=== PATIENT | male | born 1970 | race African-American/Black ===

== ENCOUNTER 2017-12-23 18:28 | Observation (INO) ==
[2017-12-23 19:30] LABS: Baso # (Auto) 0.2 th/mm3 (0.0-0.2); Baso % (Auto) 3.8 % (0.0-2.0); Eos # (Auto) 0.1 th/mm3 (0.0-0.4); Eos % (Auto) 1.2 % (0.0-4.0); Hematocrit 41.8 % (39.0-51.0); Lymph # (Auto) 1.4 th/mm3 (1.0-4.8); Lymph % (Auto) 27.9 % (9.0-44.0); Mean Corpuscular HGB Conc 35.9 % (32.0-36.0); Mean Corpuscular Hemoglobin 30.2 pg (27.0-34.0); Mean Corpuscular Volume 84.3 fL (80.0-100.0); Mean Platelet Volume 8.2 fL (7.0-11.0); Mono # (Auto) 0.3 th/mm3 (0.0-0.9); Mono % (Auto) 6.1 % (0.0-8.0); Neut # (Auto) 2.8 th/mm3 (1.8-7.7); Platelet Count 273 th/mm3 (150-450); Red Blood Count 4.96 mil/mm3 (4.50-5.90); Red Cell Distribution Width 13.1 % (11.6-17.2); White Blood Count 4.9 th/mm3 (4.0-11.0)
[2017-12-23 19:32] LABS: Chloride 99 meq/L (98-107); Potassium 4.5 meq/L (3.5-5.1); Sodium 131 meq/L (136-145)
[2017-12-23] MEDS: Sod Chloride 0.9% Inj 1,000 ML IV.SIG SCH ×3 (19:34→21:11)
--- NOTE | 2017-12-23 19:34 | XR ---
EXAM DATE: 12/23/2017 7:23 PM EDT AGE/SEX: 47 years / Male INDICATIONS: Chest pain. CLINICAL DATA: This is the patient's initial encounter. Patient reports that signs and symptoms have been present for 3 days and indicates a pain score of 5/10. MEDICAL/SURGICAL HISTORY: None. None. COMPARISON: No prior exams available for comparison. FINDINGS: The lungs are clear without infiltrate, nodule, or mass. There is no appreciable pleural effusion for technique. Heart and mediastinum are unremarkable. CONCLUSION: No acute cardiopulmonary disease. Electronically signed by: Paul Dent MD 12/23/2017 7:33 PM EDT
[2017-12-23 19:36] LABS: Albumin 3.8 g/dL (3.4-5.0); Anion Gap 8 meq/L (5-15); Blood Urea Nitrogen 13 mg/dL (7-18); Calcium 8.6 mg/dL (8.5-10.1); Carbon Dioxide 23.6 meq/L (21.0-32.0)
[2017-12-23 19:37] LABS: Activated Partial Thrombo Time 24.5 sec (24.3-30.1); INR 0.9 Ratio; Prothrombin Time 9.4 sec (9.8-11.6)
[2017-12-23 19:39] LABS: Alanine Aminotransferase 47 U/L (12-78); Aspartate Aminotransferase 28 U/L (15-37); Glomerular Filtration Rate 79 mL/min (>89)
[2017-12-23 19:41] LABS: Total Protein 7.6 g/dL (6.4-8.2)
[2017-12-23 19:43] LABS: Alkaline Phosphatase 153 U/L (45-117); Creatine Kinase 361 U/L (39-308)
[2017-12-23 19:46] LABS: Glucose,Random 577 mg/dL (74-106)
--- NOTE | 2017-12-23 19:57 | CT ---
EXAM DATE: 12/23/2017 7:49 PM EDT AGE/SEX: 47 years / Male INDICATIONS: Blurred vision. Chills for three days. CLINICAL DATA: This is the patient's initial encounter. Patient reports that signs and symptoms have been present for 3 days and indicates a pain score of 0/10. MEDICAL/SURGICAL HISTORY: . . RADIATION DOSE: 56.11 CTDI (mGy) COMPARISON: No prior exams available for comparison. TECHNIQUE: CT of the head without contrast. Using automated exposure control and adjustment of the mA and/or kV according to patient size, radiation dose was kept as low as reasonably achievable to ob tain optimal diagnostic quality images. DICOM format image data is available electronically for revi ew and comparison. FINDINGS: There is no evidence for intracranial hemorrhage, mass effect, mass lesions, edema, or extra-axial fl uid collections. The visualized bony structures appear intact. The ventricles are normal size for t he patient's age. There are no signs of acute infarction for technique. CONCLUSION: Unremarkable study. Electronically signed by: Paul Dent MD 12/23/2017 7:55 PM EDT
[2017-12-23 20:02] LABS: CKMB Percent 0.5 % (0.0-4.0); Creatine Kinase MB 1.9 ng/mL (0.5-3.6)
--- NOTE | 2017-12-23 20:28 | ED ---
HPI General Chief complaint: Eye Problems Stated complaint: blurred vision /chills x3days Time Seen by Provider: 12/23/17 18:57 Source: patient Mode of arrival: ambulatory Limitations: no limitations History of Present Illness HPI narrative: Patient is a 47-year-old male who comes in complaining of chest pain, blurred vision, elevated blood sugar. He says he has had chest pain for the past 2 days. He says his vision became blurry today. He says that he has had increased thirst and urination. He says his doctor told him he was borderline diabetic last time he saw him. He denies fever chills. He says the pain is in the center of his chest and he feels like it may be reflux. He denies nausea or vomiting. He denies any headache or head injury. Severity is mild to moderate. Related Data Home Medications Medication Instructions Recorded Confirmed dutasteride 0.5 mg PO DAILY 12/23/17 12/23/17 Allergies Allergy/AdvReac Type Severity Reaction Status Date / Time No Known Allergies Allergy Verified 12/23/17 20:15 Review of Systems ROS: all other systems reviewed are negative Constitutional Denies chills and Denies fever(s) Eyes Reports blurry vision ENT Denies dizziness Cardiovascular Reports chest pain and Denies edema Respiratory Denies cough and Denies dyspnea Gastrointestinal Denies abdominal pain, Denies nausea and Denies vomiting Musculoskeletal Denies myalgias and Denies arthralgias Integumentary/Breasts Denies rash and Denies wounds Neurologic Denies headache(s), Denies focal weakness, Denies numbness and Denies weakness [facility] Medical History Medical History Toxoplasmosis (Acute) Social History Social History Substance History: No History of Abuse Second Hand Smoke Exposure: No Smoking Status: Never smoker How Often Do You Have a Drink Containing Alcohol: Monthly or less Recent Travel in [facility] within the Last 8 Weeks: No Recent Out of Country Travel within the Last 8 Weeks: No Immunization History Tetanus Immunization: >5 Years Hx Influenza Vaccine This Season: No Exam Narrative Exam Narrative: GENERAL: Awake and alert, in no acute distress. SKIN: Focused skin assessment warm/dry. No wounds or signs of infection. HEAD: Atraumatic. Normocephalic. EYES: Pupils equal and round. No scleral icterus. ENT: Mucous membranes pink and moist. NECK: Trachea midline. No JVD. CARDIOVASCULAR: Regular rate and rhythm. No murmur appreciated. RESPIRATORY: No accessory muscle use. Clear to auscultation. Breath sounds equal bilaterally. GASTROINTESTINAL: Abdomen soft, non-tender, nondistended. Hepatic and splenic margins not palpable. MUSCULOSKELETAL: No obvious deformities. No clubbing. No cyanosis. No edema. NEUROLOGICAL: Awake and alert. No obvious cranial nerve deficits. Motor grossly within normal limits. Normal speech. Peripheral vision intact. PSYCHIATRIC: Appropriate mood and affect; insight and judgment normal. Course Initial Documented Vital Signs Temperature 98.5 F 12/23/17 18:46 Pulse Rate 84 12/23/17 18:46 Respiratory Rate 18 12/23/17 18:46 Blood Pressure 155/97 H 12/23/17 18:46 Pulse Oximetry 96 12/23/17 18:46 Last Documented Vital Signs Temperature 98.5 F 12/23/17 18:46 Pulse Rate 84 12/23/17 20:13 Respiratory Rate 18 12/23/17 18:46 Blood Pressure 171/82 H 12/23/17 20:13 Pulse Oximetry 98 12/23/17 20:13 Medical Decision Making MDM Narrative Medical decision making narrative: Patient is a 47-year-old male who comes in complaining of blurred vision, chest pain, urinary frequency and increased thirst. Exam shows no neurologic abnormalities. Patient does have decreased vision bilaterally. IV established, labs sent. Labs show a blood sugar of 577. Patient given IV fluids, insulin, aspirin. First troponin is negative. Patient will be admitted for management of chest pain as well as new onset diabetes. Medical Screen Exam Complete: Yes Emergency Medical Condition: Yes Differential Diagnosis Differential Diagnosis: New-onset diabetes versus DKA versus dehydration versus ACS Medical Records Medical records reviewed: Yes I reviewed the patient's medical records. Lab Data Lab results reviewed: Yes I reviewed the patient's lab results. Result diagrams: 12/23/17 19:15 12/23/17 19:15 Lab Results 12/23/17 12/23/17 12/23/17 Range/Units 19:15 19:15 19:15 CBC w Diff Auto diff final WBC 4.9 (4.0-11.0) th/mm3 RBC 4.96 (4.50-5.90) mil/mm3 Hgb 15.0 (13.0-17.0) gm/dL Hct 41.8 (39.0-51.0) % MCV 84.3 (80.0-100.0) fL MCH 30.2 (27.0-34.0) pg MCHC 35.9 (32.0-36.0) % RDW 13.1 (11.6-17.2) % Plt Count 273 (150-450) th/mm3 MPV 8.2 (7.0-11.0) fL Neut % (Auto) 61.0 (16.0-70.0) % Lymph % (Auto) 27.9 (9.0-44.0) % [place] % (Auto) 6.1 (0.0-8.0) % Eos % (Auto) 1.2 (0.0-4.0) % Baso % (Auto) 3.8 H (0.0-2.0) % Neut # (Auto) 2.8 (1.8-7.7) th/mm3 Lymph # (Auto) 1.4 (1.0-4.8) th/mm3 [place] # (Auto) 0.3 (0.0-0.9) th/mm3 Eos # (Auto) 0.1 (0.0-0.4) th/mm3 Baso # (Auto) 0.2 (0.0-0.2) th/mm3 WBC Differential . Differential Comment . PT 9.4 L (9.8-11.6) sec INR 0.9 Ratio APTT 24.5 (24.3-30.1) sec Sodium 131 L (136-145) meq/L Potassium 4.5 (3.5-5.1) meq/L Chloride 99 (98-107) meq/L Carbon Dioxide 23.6 (21.0-32.0) meq/L Anion Gap 8 (5-15) meq/L BUN 13 (7-18) mg/dL Creatinine 1.20 (0.60-1.30) mg/dL Estimated GFR 79 L (>89) mL/min POC Glucose (68-110) mg/dl Random Glucose 577 H* (74-106) mg/dL Calcium 8.6 (8.5-10.1) mg/dL Total Bilirubin 0.3 (0.2-1.0) mg/dL Direct Bilirubin 0.1 (0.0-0.2) mg/dL Indirect Bilirubin 0.2 (0.0-0.8) mg/dL AST 28 (15-37) U/L ALT 47 (12-78) U/L Alkaline Phosphatase 153 H (45-117) U/L Total Creatine Kinase 361 H (39-308) U/L CK-MB (CK-2) 1.9 (0.5-3.6) ng/mL CK-MB (CK-2) % 0.5 (0.0-4.0) % Troponin I Less than 0.02 L (0.02-0.05) ng/mL Total Protein 7.6 (6.4-8.2) g/dL Albumin 3.8 (3.4-5.0) g/dL 12/23/17 Range/Units 20:14 CBC w Diff WBC (4.0-11.0) th/mm3 RBC (4.50-5.90) mil/mm3 Hgb (13.0-17.0) gm/dL Hct (39.0-51.0) % MCV (80.0-100.0) fL MCH (27.0-34.0) pg MCHC (32.0-36.0) % RDW (11.6-17.2) % Plt Count (150-450) th/mm3 MPV (7.0-11.0) fL Neut % (Auto) (16.0-70.0) % Lymph % (Auto) (9.0-44.0) % [place] % (Auto) (0.0-8.0) % Eos % (Auto) (0.0-4.0) % Baso % (Auto) (0.0-2.0) % Neut # (Auto) (1.8-7.7) th/mm3 Lymph # (Auto) (1.0-4.8) th/mm3 [place] # (Auto) (0.0-0.9) th/mm3 Eos # (Auto) (0.0-0.4) th/mm3 Baso # (Auto) (0.0-0.2) th/mm3 WBC Differential Differential Comment PT (9.8-11.6) sec INR Ratio APTT (24.3-30.1) sec Sodium (136-145) meq/L Potassium (3.5-5.1) meq/L Chloride (98-107) meq/L Carbon Dioxide (21.0-32.0) meq/L Anion Gap (5-15) meq/L BUN (7-18) mg/dL Creatinine (0.60-1.30) mg/dL Estimated GFR (>89) mL/min POC Glucose 515 H* (68-110) mg/dl Random Glucose (74-106) mg/dL Calcium (8.5-10.1) mg/dL Total Bilirubin (0.2-1.0) mg/dL Direct Bilirubin (0.0-0.2) mg/dL Indirect Bilirubin (0.0-0.8) mg/dL AST (15-37) U/L ALT (12-78) U/L Alkaline Phosphatase (45-117) U/L Total Creatine Kinase (39-308) U/L CK-MB (CK-2) (0.5-3.6) ng/mL CK-MB (CK-2) % (0.0-4.0) % Troponin I (0.02-0.05) ng/mL Total Protein (6.4-8.2) g/dL Albumin (3.4-5.0) g/dL Imaging Data Radiologist's impression: Chest X-Ray 12/23/17 19:06 CONCLUSION: No acute cardiopulmonary disease. Head CT 12/23/17 19:07 CONCLUSION: Unremarkable study. ECG Data EKG Prior to Arrival: No Attestation: I personally reviewed and interpreted this ECG as follows: Interpretation: ECG shows normal sinus rhythm at a rate of 73, no ST elevation or depression, normal intervals Discharge Plan Discharge Disposition Patient Disposition: 30 Still Patient Discharge Condition Condition: Stable Discharge Details Diagnosis: Acute hyperglycemia, Chest pain Physicians Team ED Provider: Nicole Olvera Primary Care Provider: UNKNOWN, Rxs /Orders / Referrals /Forms Prescriptions: No Action dutasteride 0.5 mg Capsule 0.5 mg PO DAILY RF: 0 Status ED Status: With Doctor
[2017-12-23] MEDS ORDERED: Dextrose 50% in Water 50 ML Vial IV.PUSH PRN (20:39)
[2017-12-23] MEDS ORDERED: Acetaminophen 325 MG Tablet PO PRN (20:40)
[2017-12-23] MEDS ORDERED: Bisacodyl 10 MG Supp RECTAL PRN (20:40)
[2017-12-23] MEDS ORDERED: Insulin Detemir Inj 1,000 UNIT/10 ML Vial SQ SCH (21:00)
[2017-12-23] MEDS: Senna/Docusate Sodium 8.6/50 MG Tablet PO SCH (21:41)
[2017-12-23] MEDS: Insulin NovoLOG Aspart Correctional Sugar Inj SQ SCH (21:42)
[2017-12-23] MEDS: Sod Chloride 0.9% Inj 1,000 ML IV.CONT SCH (23:43)
[2017-12-24 06:14] LABS: Baso % (Auto) 0.4 % (0.0-2.0); Eos # (Auto) 0.1 th/mm3 (0.0-0.4); Eos % (Auto) 1.3 % (0.0-4.0); Hematocrit 38.5 % (39.0-51.0); Hemoglobin 13.2 gm/dL (13.0-17.0); Lymph # (Auto) 1.6 th/mm3 (1.0-4.8); Lymph % (Auto) 35.1 % (9.0-44.0); Mean Corpuscular HGB Conc 34.2 % (32.0-36.0); Mean Corpuscular Hemoglobin 29.5 pg (27.0-34.0); Mean Corpuscular Volume 86.1 fL (80.0-100.0); Mean Platelet Volume 7.7 fL (7.0-11.0); Mono # (Auto) 0.4 th/mm3 (0.0-0.9); Mono % (Auto) 8.9 % (0.0-8.0); Neut # (Auto) 2.5 th/mm3 (1.8-7.7); Neut % (Auto) 54.3 % (16.0-70.0); Platelet Count 221 th/mm3 (150-450); Red Blood Count 4.47 mil/mm3 (4.50-5.90); Red Cell Distribution Width 12.5 % (11.6-17.2); White Blood Count 4.6 th/mm3 (4.0-11.0)
[2017-12-24 07:21] LABS: Alanine Aminotransferase 35 U/L (12-78); Albumin 3.1 g/dL (3.4-5.0); Alkaline Phosphatase 90 U/L (45-117); Anion Gap 7 meq/L (5-15); Aspartate Aminotransferase 19 U/L (15-37); Blood Urea Nitrogen 10 mg/dL (7-18); Calcium 8.1 mg/dL (8.5-10.1); Carbon Dioxide 25.1 meq/L (21.0-32.0); Chloride 107 meq/L (98-107); Creatine Kinase 248 U/L (39-308); Glomerular Filtration Rate Greater Than 89 mL/min (>89); Glucose,Random 276 mg/dL (74-106); Lipase 151 U/L (73-393); Potassium 3.7 meq/L (3.5-5.1); Sodium 139 meq/L (136-145); Total Protein 6.4 g/dL (6.4-8.2)
[2017-12-24] MEDS: Sod Chloride 0.9% Inj 1,000 ML IV.CONT SCH (07:51)
[2017-12-24] MEDS: Insulin NovoLOG Aspart Correctional Sugar Inj SQ SCH ×3 (07:56→16:52)
[2017-12-24] MEDS: Senna/Docusate Sodium 8.6/50 MG Tablet PO SCH (08:02)
[2017-12-24 08:22] VITALS: RESP 20
--- NOTE | 2017-12-24 08:57 | P.HP ---
History of Present Illness Primary Care Physician: UNKNOWN Chief Complaint: Chest pain and elevated glucose History of Present Illness: This is a 47-year-old male patient with no known medical history who presented to the ED with complaints of chest pain. Patient states yesterday afternoon while watching football he noticed a midsternal pain that felt sharp and pressure-like in nature which he attributed it to gas pain due to it happening shortly after eating. He states that the pain lasted roughly five minutes and when away on its own, denies any known aggravating or alleviating factors. He denies any associated nausea, vomiting, shortness of breath or sweating. Patient does state the pain did not radiate but was associated with bilateral upper extremity numbness and cramping. He denies ever having this type of pain before and does admit to resolution of pain since time of occurrence. He does follow closely with his PCP, he has been recently diagnosed with a heart murmur secondary to mitral valve prolapse. He has had a recent ECHO in the outpatient office and has been referred to a workers compensation manager in [employer], patient has a set appointment with him on January 04. Patient does admit to a significant family history of his father having a massive heart attack at the age of 4040 years old. He denies any tobacco abuse. Does state that his PCP has recently checked his lipid panel which was reportedly unremarkable. He has recently been diagnosed with borderline diabetes with recommendations from his PCP to attempt diet control and weight loss. He does admit to recent complaints of increased urinated, blurry vision and increased thirst. - Diagnosis (1) Acute hyperglycemia (2) Chest pain Review of Systems All other systems reviewed negative except as stated in [facility] PMF - History History Provided By: Patient - Medical History Medical History: Medical History (Last Reviewed 12/24/17 @ 12:08 by Nicole Martin) Toxoplasmosis - Surgical History Surgical History: Surgical History (Last Updated 12/24/17 @ 12:12 by Nicole Martin) Status post left foot surgery - Family History Family History: Family History (Last Updated 12/24/17 @ 12:15 by Nicole Martin) Father Cardiovascular disease - Tobacco History Second Hand Smoke Exposure: No Tobacco Use In Past 30 Days: No Smoking Status: Never smoker - Alcohol History How Often Do You Have a Drink Containing Alcohol: Monthly or less - Substance Use History Substance History: No History of Abuse - Travel History Recent Travel in the [place] Within the Last 8 Weeks: No Recent Travel Out of the Country Within the Last 8 Weeks: No - Immunization History Tetanus Immunization: >5 Years Hx Influenza Vaccine This Season: No Medications and Allergies Active Medications: Active Medications Acetaminophen (Tylenol) 650 mg PO Q4H PRN PRN Reason: Temp > 100.4 Al Hydroxide/Mg Hydroxide (Milk Of Magnesia Liq) 30 ml PO Q12H PRN PRN Reason: Mild Constipation Aspirin (Ecotrin) 325 mg PO DAILY [facility] Last Admin: 12/24/17 08:02 Dose: Not Given Bisacodyl (Dulcolax Supp) 10 mg RECTAL DAILY PRN PRN Reason: SEVERE CONSITIPATION Dextrose (D50w Vial) 50 ml IV.PUSH UNSCH PRN PRN Reason: PER HYPOGLYCEMIA PROTOCOL Glucagon (Glucagon Inj) 1 mg OTHER PRN PRN PRN Reason: for Hypoglycemia Protocol Sodium Chloride (Ns Inj) 1,000 mls @ 0 mls/hr IV.SIG BOLUS [facility] Last Infusion: 12/23/17 23:56 Dose: Infused Sodium Chloride (Ns Inj) 1,000 mls @ 100 mls/hr IV.CONT .Q10H [facility] Last Admin: 12/24/17 07:51 Dose: 100 mls/hr Insulin Aspart (Novolog Insulin Correctional Sugar Inj) 0 unit SQ ACHS [facility]; Protocol Last Admin: 12/24/17 07:56 Dose: 7 unit Insulin Detemir (Levemir Inj) 10 unit SQ HS [facility] Last Admin: 12/23/17 21:10 Dose: 10 unit Lactulose (Lactulose Liq) 30 ml PO DAILY PRN PRN Reason: SEVERE CONSITIPATION Nitroglycerin (Nitrostat Sl) 0.4 mg SL Q5M PRN PRN Reason: CHEST PAIN Ondansetron HCl (Zofran Inj) 4 mg IV.PUSH Q6H PRN PRN Reason: NAUSEA OR VOMITING Senna/Docusate Sodium (Chyna-Colace) 1 tab PO BID [facility] Last Admin: 12/24/17 08:02 Dose: Not Given Sennosides (Senokot) 17.2 mg PO Q12H PRN PRN Reason: Moderate Constipation Sodium Chloride (Ns Flush) 2 ml IV.FLUSH UNSCH PRN PRN Reason: FLUSH AFTER USING IV ACCESS Allergies Allergy/AdvReac Type Severity Reaction Status Date / Time No Known Allergies Allergy Verified 12/23/17 20:15 Home Medications Medication Instructions Recorded Confirmed Type dutasteride 0.5 mg PO DAILY 12/23/17 12/23/17 History Exam Vital signs: Vital Signs 12/23/17 18:46 12/23/17 20:12 12/23/17 20:13 Temperature 98.5 F Pulse Rate 84 86 84 Respiratory Rate 18 Blood Pressure 155/97 H 171/82 H Pulse Oximetry 96 98 98 12/23/17 20:54 12/23/17 21:00 12/23/17 22:20 Temperature 98.0 F Pulse Rate 72 76 76 Respiratory Rate 18 18 20 Blood Pressure 150/90 H 137/82 132/78 Pulse Oximetry 12/23/17 22:25 12/24/17 00:55 12/24/17 04:00 Temperature 97.2 F L 97.7 F Pulse Rate 62 60 Respiratory Rate 20 18 Blood Pressure 144/84 H 127/77 Pulse Oximetry 97 97 97 12/24/17 07:51 12/24/17 08:00 Temperature 98.1 F Pulse Rate 59 L Respiratory Rate 20 Blood Pressure 129/78 Pulse Oximetry 97 95 Intake & Output 12/23/17 12/24/17 12/24/17 18:59 06:59 18:59 Intake Total 3000 / 3000 1000 / 1000 Balance 3000 / 3000 1000 / 1000 Weight 105.7 kg 106.4 kg Intake: IV 3000 / 3000 1000 / 1000 NS Inj 1,000 ML @ 100 mls/hr IV 1000 / 1000 .CONT .Q10H [facility] Rx#:[id number] NS Inj 1,000 ML @ Wide Open IV. 3000 / 3000 SIG BOLUS NAYELY Rx#:[id number] Other: # Voids 2 Weight On Admission 106.9 kg Narrative: GENERAL: Well-developed, well-nourished patient in [facility]. SKIN: Warm and dry. No rash. HEAD: Normocephalic. Atraumatic. EYES: Pupils equal and round. No scleral icterus. No injection or drainage. ENT: No nasal bleeding or discharge. Mucous membranes pink and moist. NECK: Supple. Trachea midline. CARDIOVASCULAR: Regular rate and rhythm. S1, S2 noted. No murmur appreciated. RESPIRATORY: No accessory muscle use. Clear to auscultation. Breath sounds equal bilaterally. GASTROINTESTINAL: Abdomen soft, non-tender, nondistended. Normoactive bowel sounds x4. MUSCULOSKELETAL: No obvious deformities. Extremities without clubbing, cyanosis , or edema. NEUROLOGICAL: Awake and alert. No obvious cranial nerve deficits. Motor grossly within normal limits. 5/5 muscle strength in bilateral upper and lower extremities. Normal speech. PSYCHIATRIC: Appropriate mood and affect; insight and judgment normal. Results - Labs CBC & Chem 7: 12/24/17 05:40 12/24/17 05:40 Labs: Laboratory Results - last 24 hr 12/23/17 12/23/17 12/23/17 19:15 19:15 19:15 CBC w Diff Auto diff final WBC 4.9 RBC 4.96 Hgb 15.0 Hct 41.8 MCV 84.3 MCH 30.2 MCHC 35.9 RDW 13.1 Plt Count 273 MPV 8.2 Neut % (Auto) 61.0 Lymph % (Auto) 27.9 [facility] % (Auto) 6.1 Eos % (Auto) 1.2 Baso % (Auto) 3.8 H Neut # (Auto) 2.8 Lymph # (Auto) 1.4 [facility] # (Auto) 0.3 Eos # (Auto) 0.1 Baso # (Auto) 0.2 WBC Differential . Differential Comment . PT 9.4 L INR 0.9 APTT 24.5 Sodium 131 L Potassium 4.5 Chloride 99 Carbon Dioxide 23.6 Anion Gap 8 BUN 13 Creatinine 1.20 Estimated GFR 79 L POC Glucose Random Glucose 577 H* Calcium 8.6 Total Bilirubin 0.3 Direct Bilirubin 0.1 Indirect Bilirubin 0.2 AST 28 ALT 47 Alkaline Phosphatase 153 H Total Creatine Kinase 361 H CK-MB (CK-2) 1.9 CK-MB (CK-2) % 0.5 Troponin I Less than 0.02 L Total Protein 7.6 Albumin 3.8 Lipase 12/23/17 12/23/17 12/24/17 20:14 21:16 03:33 CBC w Diff WBC RBC Hgb Hct MCV MCH MCHC RDW Plt Count MPV Neut % (Auto) Lymph % (Auto) [facility] % (Auto) Eos % (Auto) Baso % (Auto) Neut # (Auto) Lymph # (Auto) [facility] # (Auto) Eos # (Auto) Baso # (Auto) WBC Differential Differential Comment PT INR APTT Sodium Potassium Chloride Carbon Dioxide Anion Gap BUN Creatinine Estimated GFR POC Glucose 515 H* 437 H 302 H Random Glucose Calcium Total Bilirubin Direct Bilirubin Indirect Bilirubin AST ALT Alkaline Phosphatase Total Creatine Kinase CK-MB (CK-2) CK-MB (CK-2) % Troponin I Total Protein Albumin Lipase 12/24/17 12/24/17 12/24/17 05:40 05:40 07:29 CBC w Diff Auto diff final WBC 4.6 RBC 4.47 L Hgb 13.2 Hct 38.5 L MCV 86.1 MCH 29.5 MCHC 34.2 RDW 12.5 Plt Count 221 MPV 7.7 Neut % (Auto) 54.3 Lymph % (Auto) 35.1 [facility] % (Auto) 8.9 H Eos % (Auto) 1.3 Baso % (Auto) 0.4 Neut # (Auto) 2.5 Lymph # (Auto) 1.6 [facility] # (Auto) 0.4 Eos # (Auto) 0.1 Baso # (Auto) 0.0 WBC Differential . Differential Comment . PT INR APTT Sodium 139 Potassium 3.7 D Chloride 107 D Carbon Dioxide 25.1 Anion Gap 7 BUN 10 Creatinine 0.97 Estimated GFR Greater than 89 POC Glucose 300 H Random Glucose 276 H D Calcium 8.1 L Total Bilirubin 0.4 Direct Bilirubin Indirect Bilirubin AST 19 ALT 35 Alkaline Phosphatase 90 Total Creatine Kinase 248 CK-MB (CK-2) CK-MB (CK-2) % Troponin I Less than 0.02 L Total Protein 6.4 D Albumin 3.1 L D Lipase 151 - Imaging Impressions Chest X-Ray 12/23/17 19:06 CONCLUSION: No acute cardiopulmonary disease. Head CT 12/23/17 19:07 CONCLUSION: Unremarkable study. Caprini VTE Risk Assessment Caprini VTE Risk Assessment: No/Low Risk (score <= 1) Caprini Risk Assessment Model: Point Value = 1 Point Value = 2 Point Value = 3 Point Value = 5 Age 41-60 Minor surgery BMI > 25 kg/m2 Swollen legs Varicose veins or History of unexplained or recurrent spontaneous Oral contraceptives or hormone replacement Sepsis (< 1 month) Serious lung disease, including pneumonia (< 1 month) Abnormal pulmonary function Acute myocardial infarction Congestive heart failure (< 1 month) History of inflammatory bowel disease Medical patient at bed rest Age 61-74 Arthroscopic surgery Major open surgery (> 45 min) Laparoscopic surgery (> 45 min) Malignancy Confined to bed (> 72 hours) Immobilizing plaster cast Central venous access Age >= 75 History of VTE Family history of VTE Factor V Leiden Prothrombin [id number] Lupus anticoagulant Anticardiolipin antibodies Elevated serum homocysteine Heparin-induced thrombocytopenia Other congenital or acquired thrombophilia Stroke (< 1 month) Elective arthroplasty Hip, pelvis, or leg fracture Acute spinal cord injury (< 1 month) Prophylaxis Regimen: Total Risk Factor Score Risk Level Prophylaxis Regimen 0-1 Low Early ambulation 2 Moderate Order ONE of the following: *Sequential Compression Device (SCD) *Heparin 5000 units SQ BID 3-4 Higher Order ONE of the following medications: *Heparin 5000 units SQ TID *Enoxaparin/Lovenox 40 mg SQ daily (WT < 150 kg, CrCl > 30 mL/min) *Enoxaparin/Lovenox 30 mg SQ daily (WT < 150 kg, CrCl > 10-29 mL/min) *Enoxaparin/Lovenox 30 mg SQ BID (WT < 150 kg, CrCl > 30 mL/min) AND/OR *Sequential Compression Device (SCD) 5 or more Highest Order ONE of the following medications: *Heparin 5000 units SQ TID (Preferred with Epidurals) *Enoxaparin/Lovenox 40 mg SQ daily (WT < 150 kg, CrCl > 30 mL/min) *Enoxaparin/Lovenox 30 mg SQ daily (WT < 150 kg, CrCl > 10-29 mL/min) *Enoxaparin/Lovenox 30 mg SQ BID (WT < 150 kg, CrCl > 30 mL/min) AND *Sequential Compression Device (SCD) Assessment and Plan - Assessment (1) Acute hyperglycemia Code(s): R73.9 - Hyperglycemia, unspecified Status: Acute (2) Chest pain Code(s): R07.9 - Chest pain, unspecified Status: Acute - Plan This is a 47-year-old patient with: Chest pain History of mitral valve prolapse -Patient presented with chest pain upon presentation. Has completely resolved with no further symptoms during hospitalization. -Patient was admitted for observation. Serial EKGs and serial troponins were ordered for ruling out ACS purposes. -Troponin trend flat. EKF reviewed showing controlled heart rate without any ST changes. -Patient continued on cardiac telemetry, no arrhythmias overnight. -Pain is completely resolved. -Lipid panel has been checked recently by PCP, reportedly unmarketable. -CXR reviewed and without any acute findings. -Risk factors include father having a massive SD at the age of 4040 years old as well as MVP. -Patient underwent a cardiac treadmill stress test to further rule out any ischemia. Counter Intelligence on site nurse read images with no ischemia noted. -Placed on diabetic diet. -Continue to monitor. Stable at this time. New onset diabetes with elevated glucose -Patient presented with elevated glucose in the 500's. No DKA, anion gap closed. -Was given IV insulin. Placed on sliding scale insulin, cover as needed, follow bs trends. Trending down. -Placed on Levemir 10 units HS for now. -Consult has been placed to school vocational educator and compensation and hris analyst, awaiting evaluation. -Placed on 1800 ADA diet for now. -Awaiting hemoglobin a1c. Follow. DVT Prophylaxis: SCDs. Ambulation. Discharge Planning: Awaiting school vocational educator and compensation and hris analyst. Likely dc home tomorrow, awaiting a1c as well as determining plan on dc meds for diabetes depending on blood sugar trends. (2) Chest pain Qualifiers: Chest pain type: unspecified Qualified Code(s): R07.9 - Chest pain, unspecified
[2017-12-24 12:42] LABS: Creatine Kinase 285 U/L (39-308)
--- NOTE | 2017-12-24 14:50 | TR ---
Date Performed: 12/24/2017 Time Performed: 10:45:04 DOCTOR: [place] DRUG LIST: CLINICAL HISTORY: REASON FOR TEST: Chest pain REASON FOR ENDING: OBSERVATION: CONCLUSION: Himanshu protocol completed and test stopped secondary to reaching target heart rate. G reat exercise tolerance. No reproducible chest discomfort. Good BP response. Recovery quick and unrem arkable. Maximum FI=327 Target HR Gioosmdc=046.0% Maximum IY=156/82 Total Exercise Time=7:01 COMMENTS: Patient exercised using the Himanshu protocol. No electrocardiographic changes were seen to suggest ischemia. Hemodynamic response to exercise was normal. No significant arrhythmia was prese nt.
[2017-12-24 16:37] LABS: Hemoglobin A1c 13.4 % (4.3-6.0)
--- NOTE | 2017-12-24 17:38 | ECG ---
Date Performed: 12/24/2017 Time Performed: 11:57:15 PTAGE: 47 years EKG: Sinus rhythm MINIMAL VOLTAGE CRITERIA FOR LVH, CONSIDER NORMAL VARIANT NONSPECIFIC ST ELEVATION BORDERLINE ECG PREVIOUS TRACING : 12/24/2017 06.03 DOCTOR: Maria M Richardson Interpretating Date/Time 12/24/2017 17:36:29
[2017-12-24 18:06] VITALS: BP 137/85; PULSE 63; TEMP 96.5; O2SAT 95
--- NOTE | 2017-12-24 18:30 | ECG ---
Date Performed: 12/24/2017 Time Performed: 06:03:11 PTAGE: 47 years EKG: SINUS BRADYCARDIA NONSPECIFIC ST & T-WAVE ABNORMALITY BORDERLINE ECG PREVIOUS TRACING : 12/23/2017 19.07 DOCTOR: Maria M Richardson Interpretating Date/Time 12/24/2017 18:29:11
--- NOTE | 2017-12-24 18:37 | ECG ---
Date Performed: 12/23/2017 Time Performed: 19:07:35 PTAGE: 47 years EKG: Sinus rhythm WITH SINUS ARRHYTHMIA NORMAL ECG PREVIOUS TRACING : 07/23/1995 22.38 DOCTOR: Maria M Richardson Interpretating Date/Time 12/24/2017 18:34:07
== END 2017-12-24 17:55 | disposition home or self-care (01) ==
LOC: PHED 18:28 → PHEDA 18:28 → PH3 22:19
PROVIDERS: ADMIT Internal Medicine; ATTEND Internal Medicine
DX: Z79.4 Long term (current) use of insulin; E11.65 Type 2 diabetes mellitus with hyperglycemia; R07.9 Chest pain, unspecified; I34.1 Nonrheumatic mitral (valve) prolapse; Z82.49 Family history of ischemic heart disease and other diseases of the circulatory system; R94.31 Abnormal electrocardiogram [ECG] [EKG]